=== PATIENT | female | born 1965 | race African-American/Black ===

== ENCOUNTER 2016-07-23 16:52 | Emergency (ER) | payer OTHER ==
[~2016-07-23] VITALS: Ht 165.1 cm; Wt 77.1 kg
[~2016-07-23 16:52] MED LIST: IBUPROFEN 800800 MG PO; NOHOMEMEDICATIONS; PHENERGAN 25 MG25 M1 PO; PROMETHAZINE-C120 ML PO; ZOFRAN ODT4 MG PO; ZPAK PO
[2016-07-23 17:26] LABS: URINE BLOOD 1+ (Negative); URINE COLOR YELLOW; URINE GLUCOSE-RANDOM* NEGATIVE (Negative); URINE KETONES TRACE (Negative); URINE NITRITE NEGATIVE (Negative); URINE PROTEIN (DIPSTICK) TRACE (Negative); URINE SPECIFIC GRAVITY >= 1.030 (1.003-1.035); URINE UROBILINOGEN 0.2 E.U./dl (0.2-1.0)
[2016-07-23 17:33] LABS: ICTOTEST (BILI CONFIRMATORY) Negative (Negative)
[2016-07-23 17:34] LABS: URINE BILIRUBIN NEGATIVE (Negative)
[2016-07-23 17:35] LABS: SQUAMOUS >10 Many /LPF (0-3)
[2016-07-23 17:36] LABS: CASTS None Seen /LPF (None Seen); CRYSTALS None Seen /LPF (None Seen); URINE RBC 3-10 Few /HPF (0-2); URINE WBC 6-15 Few /HPF (0-5)
[2016-07-23] MEDS ORDERED: ASPIR 8181 MG PO (18:13)
[2016-07-23 18:20] LABS: BASOPHILS 0.5 % (0.0-2.0); EOSINOPHILS 0.7 % (0.0-3.0); HEMOGLOBIN 14.1 gm/dL (12.0-15.0); LYMPHOCYTES 40.6 % (24.0-44.0); MCH 33.4 pg (26.0-34.0); MCHC 34.3 g/dL (28.0-37.0); MCV 97.5 fL (80.0-100.0); MONOCYTES 5.1 % (1.0-8.0); PLATELET COUNT 225 thou/uL (150-400); POLYS 53.1 % (36.0-66.0); RDW 13.7 % (10.5-14.5); WBC 5.6 thou/uL (4.0-11.0)
[2016-07-23 18:24] LABS: MANUAL DIFF NO
[2016-07-23 18:28] LABS: CALCIUM 9.6 mg/dL (8.5-10.1); CREATININE 1.2 mg/dL (0.6-1.3); POTASSIUM 3.4 mmol/L (3.5-5.1)
[2016-07-23 18:33] LABS: ALBUMIN 4.2 g/dL (3.4-5.0); DIRECT BILIRUBIN 0.1 mg/dL (<0.1-0.3); TOTAL BILIRUBIN 0.5 mg/dL (<0.1-1.0)
[2016-07-23 19:37] VITALS: BP 135/86
== END 2016-07-23 19:54 | disposition home or self-care (01) ==
LOC: ER 16:52
PROVIDERS: Nurse Practitioner
DX: M62.838 Other muscle spasm (principal); E03.8 Other specified hypothyroidism; I10 Essential (primary) hypertension; I48.91 Unspecified atrial fibrillation; Z88.8 Allergy status to other drugs, medicaments and biological substances; F17.210 Nicotine dependence, cigarettes, uncomplicated; F10.99 Alcohol use, unspecified with unspecified alcohol-induced disorder